=== PATIENT | male | born 1940 | race Caucasian/White ===

== ENCOUNTER 2019-01-06 06:56 | Day surgery (SDC) | payer MEDICARE, BC ==
[2019-01-06] VITALS (9 sets, daily range): BP systolic 92–144; BP diastolic 50–84
[~2019-01-06] VITALS: Ht 180.3 cm; Wt 135.9 kg
[~2019-01-06 06:56] MED LIST: BUPR150T8 PO; CHOL10002 PO; GABA-532 PO; GLYB6TAB3 PO; LISI-600 PO; METF500T PO; OMEP40CA37 PO
[2019-01-06] MEDS ORDERED: diphenhydrAMINE 25mg capsule PO PRN (07:35)
[2019-01-06] MEDS ORDERED: normal saline 1,000 ML IV SCH (07:35)
[2019-01-06] MEDS ORDERED: PIOG45TA5 PO (07:37)
[2019-01-06] MEDS ORDERED: LOVA10TA PO (07:37)
[2019-01-06] MEDS ORDERED: LANTUS SQ (07:37)
[2019-01-06 08:09] LABS: BASOPHILS # (AUTO) 0.1 X10'3 (0-0.2); EOSINOPHILS # (AUTO) 0.1 X10'3 (0-0.9); EOSINOPHILS % (AUTO) 2.4 % (0-6); HEMATOCRIT 47.1 % (42.0-52.0); HEMOGLOBIN 15.5 g/dl (14.0-17.9); LYMPHOCYTES # (AUTO) 1.5 X10'3 (1.1-4.8); LYMPHOCYTES % (AUTO) 28.1 % (21-51); MEAN CORPUSCULAR HEMOGLOBIN 31.9 PG (27.0-31.0); MEAN CORPUSCULAR VOLUME 96.7 FL (78-98); MEAN PLATELET VOLUME 7.1 FL (7.4-10.4); MONOCYTES # (AUTO) 0.5 X10'3 (0-0.9); MONOCYTES % (AUTO) 9.4 % (2-12); NEUTROPHILS # (AUTO) 3.1 X10'3 (1.8-7.7); NEUTROPHILS % (AUTO) 59.1 % (42-75); PLATELET COUNT 287 X10'3 (140-440); RED BLOOD COUNT 4.87 X10'6 (4.70-6.10); RED CELL DISTRIBUTION WIDTH 14.3 % (11.5-14.5); WHITE BLOOD COUNT 5.3 X10'3 (4.5-11.0)
[2019-01-06 08:16] LABS: ANION GAP 10 (8-16); BLOOD UREA NITROGEN 14 MG/DL (7-18); BUN/CREATININE RATIO 15.6 (5.4-32.0); CALCIUM 9.4 MG/DL (8.5-10.1); CHLORIDE 100 MMOL/L (99-107); GLUCOSE 173 MG/DL (70-104); MAGNESIUM 1.6 MG/DL (1.5-2.4); POTASSIUM 4.4 MMOL/L (3.5-5.1); SODIUM 139 MMOL/L (135-145); TOTAL CARBON DIOXIDE 28.6 MMOL/L (24-32); eGFR 82 ML/MIN
[2019-01-06 08:25] LABS: INR 1.1 INR; PROTHROMBIN TIME 10.8 SECONDS (9.0-12.0)
[2019-01-06] MEDS ORDERED: midazolam 2 mg/2 ml injection ONE ×5 (08:56→11:11)
[2019-01-06] MEDS ORDERED: lidocaine 1%/epinephrine 1:100,000 injection 50ml vial ONE (08:56)
[2019-01-06] MEDS ORDERED: ceFAZolin 1000mg inj ONE (08:56)
[2019-01-06] MEDS ORDERED: fentaNYL/PF 50MCG/1 ML 2ML syringe ONE ×4 (08:56→11:11)
[2019-01-06] MEDS ORDERED: cefazolin/dext.iso 2gm/100ml 100 ML IV ONE (08:56)
[2019-01-06] MEDS ORDERED: vancomycin 1,000mg inj ONE (09:15)
[2019-01-06] MEDS ORDERED: proCHLORperazine 10 MG/2 ml inj ONE (09:28)
[2019-01-06] MEDS ORDERED: iohexol 350MG/ML 100ml bottle IV ONE ×2 (09:29→09:56)
== END 2019-01-06 14:15 | disposition home or self-care (01) ==
LOC: SSTAY O 06:56
PROVIDERS: ATTEND Internal Medicine Cardiovascular Disease
DX: I44.2 Atrioventricular block, complete (principal); I42.8 Other cardiomyopathies; I10 Essential (primary) hypertension; E11.9 Type 2 diabetes mellitus without complications; I42.0 Dilated cardiomyopathy; K21.9 Gastro-esophageal reflux disease without esophagitis; C14.0 Malignant neoplasm of pharynx, unspecified; Z85.89 Personal history of malignant neoplasm of other organs and systems
CPT/HCPCS: 33225; 33233; 33235; 33249; 36415; 71046; 80048; 82948; 83735; 85025; 85610; 93005; 99152; 99153; C1777; C1882; C1887; C1900; J0690; J0780; J2250; J3010; J3370; J3490; J7030; Q0163; Q9967; 33216; 33224; 33231; A4565; A4620; C1769

== ENCOUNTER 2019-05-29 12:32 | Outpatient (CLI) | payer MEDICARE, BC ==
[~2019-05-29] VITALS: Ht 175.9 cm; Wt 133.4 kg
[~2019-05-29 12:32] MED LIST changes: +LANTUS SQ; +LOVA10TA PO; +OMEP40CA13 PO; -OMEP40CA37 PO; +PIOG45TA5 PO
[2019-05-29 13:06] LABS: TOTAL HEMOGLOBIN 15.9 G/dl (14.0-17.9)
[2019-05-29] MEDS ORDERED: albuterol 2.5 MG/3 ML nebule NEB PRN (13:35)
== END 2019-05-29 23:59 | disposition home or self-care (01) ==
LOC: RT 12:32
PROVIDERS: ATTEND Internal Medicine Pulmonary Disease
DX: J44.9 Chronic obstructive pulmonary disease, unspecified (principal); Z79.899 Other long term (current) drug therapy; Z87.891 Personal history of nicotine dependence
CPT/HCPCS: 85018; 94060; 94727; 94729; 94760

== ENCOUNTER 2020-07-17 15:36 | Inpatient (IN) | payer MEDICARE, BC ==
[~2020-07-17] VITALS: Ht 182.9 cm; Wt 147.7 kg
[2020-07-17] MEDS ORDERED: acetaminophen 325mg tablet PO STA (15:59)
[2020-07-17] MEDS ORDERED: CefTRIAXone 2gm/D5W 50ml BAG 50 ML IV ONE (16:00)
[2020-07-17] MEDS ORDERED: normal saline 1000ML IV soln IV ONE (16:00)
[2020-07-17 16:49] LABS: MEAN CORPUSCULAR HEMOGLOBIN 34.3 PG (27.0-31.0); PLATELET COUNT 144 X10'3 (140-440)
[2020-07-17 16:50] LABS: HEMOGLOBIN 10.1 g/dl (14.0-17.9); MEAN CORPUSCULAR HGB CONC 33.7 g/dL (33.0-36.5); MEAN CORPUSCULAR VOLUME 101.8 FL (78-98); RED BLOOD COUNT 2.94 X10'6 (4.70-6.10); RED CELL DISTRIBUTION WIDTH 18.9 % (11.5-14.5); WHITE BLOOD COUNT 16.8 X10'3 (4.5-11.0)
[2020-07-17 16:57] LABS: CLARITY,URINE CLEAR (Clear); COLOR,URINE YELLOW (Yellow); GLUCOSE, URINE 250 mg/dl (Neg); KETONES,URINE TRACE mg/dl (Neg); LEUKOCYTE ESTERASE ,URINE NEGATIVE (Neg); NITRITES, URINE NEGATIVE (Neg); OCCULT BLOOD,URINE TRACE-LYSED (Neg); PROTEIN,URINE TRACE mg/dl (Neg); UROBILINOGEN,URINE 0.2 E.U/dL (0.2-1.0)
[2020-07-17 17:01] LABS: ALANINE AMINOTRANSFERASE 16 U/L (12-78); ALBUMIN 3.2 G/DL (3.4-5.0); ALBUMIN/GLOBULIN RATIO 0.8 (1.1-1.5); ALKALINE PHOSPHATASE 64 IU/L (46-116); ANION GAP 6 (8-16); ASPARTATE AMINO TRANSFERASE 22 U/L (10-37); BILIRUBIN,TOTAL 0.6 MG/DL (0.1-1.0); BLOOD UREA NITROGEN 23 MG/DL (7-18); BUN/CREATININE RATIO 19.7 (5.4-32.0); CALCIUM 8.1 MG/DL (8.5-10.1); CHLORIDE 99 MMOL/L (99-107); CREATININE 1.17 MG/DL (0.60-1.10); GLUCOSE 258 MG/DL (70-104); SODIUM 133 MMOL/L (135-145); TOTAL CARBON DIOXIDE 27.8 MMOL/L (24-32); TOTAL PROTEIN 7.3 G/DL (6.4-8.2); eGFR 60 ML/MIN
[2020-07-17 17:02] LABS: UA COLLECTION TYPE STRAIGHT CATH
[2020-07-17 17:03] LABS: AMORPHOUS URATES 2+; BACTERIA,URINE NONE SEEN /HPF (Neg); MUCUS STRANDS FEW /LPF (Neg); RBC,URINE 0-2 /HPF (0-2); SQUAMOUS EPITHELIAL CELL,UR NONE SEEN /LPF (FEW); WBC,URINE NONE SEEN /HPF (0-4)
[2020-07-17 17:16] LABS: TOTAL CELLS COUNTED 100
[2020-07-17 17:17] LABS: ANISOCYTOSIS 2+; PLATELET ESTIMATE DECREASED
--- NOTE | 2020-07-17 17:20 | NUR ---
PULLED IV OUT, REMOVED BP CUFF AND O2
--- NOTE | 2020-07-17 17:23 | NUR ---
KG - [phone] AMY- SON [phone]
[2020-07-17] MEDS ORDERED: iohexol 350MG/ML 100ml bottle IV ONE (17:43)
[2020-07-17 18:17] LABS: TROPONIN I < 0.04 NG/ML (0.0-0.05)
[2020-07-17 18:36] LABS: URINE AMPHETAMINE SCREEN NEGATIVE (Neg); URINE BARBITUATE SCREEN NEGATIVE (Neg); URINE BENZODIAZEPINES SCREEN NEGATIVE (Neg); URINE CANNABINOID SCREEN NEGATIVE (Neg); URINE COCAINE SCREEN NEGATIVE (Neg); URINE METHADONE SCREEN NEGATIVE (Neg); URINE OPIATE SCREEN NEGATIVE (Neg); URINE PHENCYCLIDINE SCREEN NEGATIVE (Neg)
[2020-07-17] MEDS ORDERED: MESSAGE TO NURSING PO ONE (18:50)
--- NOTE | 2020-07-17 19:26 | NUR ---
CALL FROM SON, AMY WHIPPLE [phone]. UPDATED SON
[2020-07-17] MEDS ORDERED: potassium Cl 20 mEq SR tablet PO PRN ×2 (19:45)
[2020-07-17] MEDS ORDERED: acetaminophen 325mg tablet PO PRN (19:45)
[2020-07-17] MEDS ORDERED: ipratropium/albuterol 3ml nebule NEB PRN (19:45)
[2020-07-17] MEDS ORDERED: docusate sod 100mg capsule PO PRN (19:45)
[2020-07-17] MEDS ORDERED: insulin Lispro (HumaLOG) vial - multi-dose SQ SCH (19:45)
[2020-07-17] MEDS ORDERED: glucagon, human recombinant 1mg kit SUBCUT PRN (19:45)
[2020-07-17] MEDS ORDERED: magnesium 2GM in 50ml NS 50 ML IV PRN (19:45)
[2020-07-17] MEDS ORDERED: potassium CL 10mEq/100ml bag 100 ML IV PRN ×2 (19:45)
[2020-07-17] MEDS ORDERED: dextrose 5%-1/2 normal saline 1,000 ML IV SCH (19:45)
[2020-07-17] MEDS ORDERED: ondansetron/PF 4mg/2ml inj IV PRN (19:45)
[2020-07-17] MEDS ORDERED: MESSAGE TO PHARMACY PO ONE (19:45)
[2020-07-17] MEDS ORDERED: acetaminophen 650mg rectal suppository RC PRN (19:45)
[2020-07-17] MEDS ORDERED: magnesium 4gm in 100ml NS 100 ML IV PRN (19:45)
[2020-07-17] MEDS ORDERED: dextrose 50%-water 50ml dispensing syringe IV PRN ×2 (19:45)
[2020-07-17] MEDS ORDERED: mag hydrox/Alum hydrox/simeth 30ml oral suspension PO PRN (19:45)
[2020-07-17] MEDS ORDERED: dextrose ORAL solution 15 GM/59 ML bottle PO PRN ×2 (19:45)
[2020-07-17] MEDS ORDERED: enoxaparin 40mg/0.4ml syringe SQ SCH (20:00)
[2020-07-17] MEDS ORDERED: vancomycin/NS 1 GM ADD-VANTAGE 250 ML IV SCH (20:00)
[2020-07-17] MEDS: K and/or MAG REPLACEMENT MC SCH (20:00)
[2020-07-17] MEDS ORDERED: GLYB5TAB7 PO (20:01)
[2020-07-17] MEDS ORDERED: METF-517 PO (20:07)
[2020-07-17] MEDS ORDERED: LOSA50TA64 PO (20:07)
[2020-07-17] MEDS ORDERED: IPRA3AMP31 NEB (20:07)
[2020-07-17 20:16] LABS: ABG BASE EXCESS 0.8 mmol/L (-2.0-2.0); ABG HCO3 25.4 mmol/L (22.0-26.0); ABG OXYGEN SATURATION 95.8 % (94-97); ABG PCO2 (T) 44.8 mmHg (35.0-48.0); ABG PO2 (T) 94.2 mmHg (75.0-100.0); ALLEN'S TEST POSITIVE; FCOHb 0.3 % (0.0-3.9); FLOW 3 L/min; FMetHb 0.1 % (0.0-1.5); FO2Hb 95.4 % (94-97); PATIENT TEMPERATURE 39.5; TOTAL HEMOGLOBIN 10.2 G/dl (14.0-18.0)
[2020-07-17] MEDS: ampicillin inj 2 GM in normal saline 100ml IV soln 100 ML IV SCH (20:36)
[2020-07-17] MEDS ORDERED: insulin glargine (Lantus) pen - multi-dose SQ SCH ×2 (21:00→22:00)
[2020-07-17 21:25] VITALS: BP 153/45
[2020-07-17] MEDS ORDERED: gabapentin 300mg capsule PO PRN (21:25)
[2020-07-17] MEDS: normal saline 1000ml 1,000 ML IV SCH (23:19)
[2020-07-17] MEDS: acyclovir inj 1,000 MG in normal saline 250ml IV soln 230 ML IV SCH (23:19)
[2020-07-18] MEDS: ampicillin inj 2 GM in normal saline 100ml IV soln 100 ML IV SCH ×3 (02:43→14:00)
[2020-07-18] MEDS ORDERED: vancomycin/NS 1 GM ADD-VANTAGE 250 ML IV SCH (05:26)
[2020-07-18 06:00] VITALS: BP 152/68
--- NOTE | 2020-07-18 06:28 | NUR ---
Report given to Regina ALVAREZ.
[2020-07-18 06:30] LABS: HEMATOCRIT 27.2 % (42.0-52.0); HEMOGLOBIN 9.1 g/dl (14.0-17.9); MEAN CORPUSCULAR HEMOGLOBIN 33.9 PG (27.0-31.0); MEAN CORPUSCULAR HGB CONC 33.4 g/dL (33.0-36.5); MEAN CORPUSCULAR VOLUME 101.6 FL (78-98); MEAN PLATELET VOLUME 7.8 FL (7.4-10.4); PLATELET COUNT 111 X10'3 (140-440); RED BLOOD COUNT 2.68 X10'6 (4.70-6.10); RED CELL DISTRIBUTION WIDTH 19.3 % (11.5-14.5); WHITE BLOOD COUNT 16.5 X10'3 (4.5-11.0)
[2020-07-18 06:52] LABS: ALANINE AMINOTRANSFERASE 14 U/L (12-78); ALBUMIN 2.8 G/DL (3.4-5.0); ALBUMIN/GLOBULIN RATIO 0.7 (1.1-1.5); ALKALINE PHOSPHATASE 56 IU/L (46-116); ANION GAP 7 (8-16); ASPARTATE AMINO TRANSFERASE 20 U/L (10-37); BILIRUBIN,TOTAL 0.4 MG/DL (0.1-1.0); BLOOD UREA NITROGEN 15 MG/DL (7-18); BUN/CREATININE RATIO 15.6 (5.4-32.0); CALCIUM 7.7 MG/DL (8.5-10.1); CHLORIDE 105 MMOL/L (99-107); CREATININE 0.96 MG/DL (0.60-1.10); GLUCOSE 128 MG/DL (70-104); MAGNESIUM 1.9 MG/DL (1.5-2.4); POTASSIUM 3.9 MMOL/L (3.5-5.1); SODIUM 139 MMOL/L (135-145); TOTAL CARBON DIOXIDE 27.1 MMOL/L (24-32); TOTAL PROTEIN 6.6 G/DL (6.4-8.2); eGFR 76 ML/MIN
--- NOTE | 2020-07-18 06:59 | NUR ---
Patient in room ORTHO 4009B. I have received report from KIM Tanner and had the opportunity to ask questions and assume patient care.
[2020-07-18] MEDS: K and/or MAG REPLACEMENT MC SCH (07:34)
[2020-07-18] MEDS ORDERED: buPROPion SR 150mg tablet PO SCH (08:00)
[2020-07-18] MEDS ORDERED: vitamin D (cholecalciferol) 1,000 unit tablet PO SCH (08:00)
[2020-07-18] MEDS ORDERED: atorvastatin 10mg tablet PO SCH (08:00)
[2020-07-18] MEDS: acyclovir inj 1,000 MG in normal saline 250ml IV soln 230 ML IV SCH (08:35)
[2020-07-18 09:15] LABS: IMMATURE CELLS 27 % (0-0)
[2020-07-18 09:27] LABS: TOTAL CELLS COUNTED 100
[2020-07-18 09:30] LABS: ANISOCYTOSIS 2+; PLATELET ESTIMATE DECREASED
[2020-07-18] MEDS: normal saline 1000ml 1,000 ML IV SCH (10:07)
--- NOTE | 2020-07-18 11:49 | NUR ---
DM Consult: Pt admit DX sepsis, metabolic encephalopathy, COPD, and possibly both TIA as well as OR per MD note. Hx T2DM A1C 8.4 appropriate given geriatric age. Pt now AOx4 w/ mentation normal per MD note. Advanced to carb controlled/heart healthy diet PO 100% first meal pending [employer] BSS. Double proteins BIDLD added given DX and pt size; pending scaled wt this hx but compared to prior admits wt likely somewhat accurate. Will continue to monitor for additional protein needs given DX. Rec: 1. continue carb controlled/heart healthy diet 2. double meats BIDLD 3. routine bowel care 4. scaled wt this admit Addendum: 07/18/20 at [address] Amended: Links added.
--- NOTE | 2020-07-18 14:07 | NUR ---
DC INSTRUCTIONS GIVEN, QUESTIONS ANSWERED. IV REMOVED, CANULA INTACT, NO COMPLICATIONS. TELE MONITOR WAS REMOVED. PT WAS ASSISTED IN DRESSING, PERSONAL ITEMS GATHERED. PT WAS WHEELED DOWN TO PRIVATE VEHICLE IN STABLE CONDITION.
[2020-07-18] MEDS ORDERED: CefTRIAXone 2gm/D5W 50ml BAG 50 ML IV SCH (16:00)
[2020-07-19] MEDS ORDERED: VANCOMYCIN LEVEL IV ONE (08:30)
== END 2020-07-18 13:30 | disposition home or self-care (01) | DRG 871 ==
LOC: ER 15:37 → ED HOLD 19:45 → ORTHO 4S 21:20
PROVIDERS: ADMIT Family Medicine; ATTEND Internal Medicine
PROC: B32T1ZZ Computerized Tomography (CT Scan) of Left Pulmonary Artery using Low Osmolar Contrast (ICD-10-PCS; principal; 2020-07-17)
PROC: B3201ZZ Computerized Tomography (CT Scan) of Thoracic Aorta using Low Osmolar Contrast (ICD-10-PCS; 2020-07-17)
PROC: B32S1ZZ Computerized Tomography (CT Scan) of Right Pulmonary Artery using Low Osmolar Contrast (ICD-10-PCS; 2020-07-17)
DX: A41.9 Sepsis, unspecified organism (principal); G93.41 Metabolic encephalopathy; Z68.41 Body mass index [BMI] 40.0-44.9, adult; J90 Pleural effusion, not elsewhere classified; E11.9 Type 2 diabetes mellitus without complications; I10 Essential (primary) hypertension; J44.9 Chronic obstructive pulmonary disease, unspecified; K57.30 Diverticulosis of large intestine without perforation or abscess without bleeding; N40.0 Benign prostatic hyperplasia without lower urinary tract symptoms; E66.01 Morbid (severe) obesity due to excess calories; I25.10 Atherosclerotic heart disease of native coronary artery without angina pectoris; N28.9 Disorder of kidney and ureter, unspecified; G89.29 Other chronic pain; I49.5 Sick sinus syndrome; Z66 Do not resuscitate; Z79.4 Long term (current) use of insulin; Z79.899 Other long term (current) drug therapy; Z85.819 Personal history of malignant neoplasm of unspecified site of lip, oral cavity, and pharynx; Z87.891 Personal history of nicotine dependence; Z95.0 Presence of cardiac pacemaker
CPT/HCPCS: 36415; 36600; 70450; 71045; 71275; 74177; 80053; 80305; 81001; 82803; 82948; 83036; 83605; 83735; 84145; 84443; 84484; 85007; 85018; 85025; 85610; 87040; 87081; 87635; 93005; 93306; 93308; 94760; 99285; G0378; J0133; J0290; J0696; J1650; J1815; J3370; J7030; J7050; Q9967

== ENCOUNTER 2021-11-03 16:28 | Inpatient (IN) | payer MEDICARE, BC ==
[~2021-11-03] VITALS: Ht 180.3 cm; Wt 84.1 kg
[~2021-11-03 16:28] MED LIST changes: +GLYB5TAB7 PO; -GLYB6TAB3 PO; +IPRA3AMP31 NEB; -LISI-600 PO; +LOSA50TA64 PO; +METF-517 PO; -METF500T PO; -OMEP40CA13 PO; +OMEP40CA21 PO
[2021-11-03] MEDS ORDERED: normal saline 1000ML IV soln IVB ONE (16:55)
[2021-11-03 17:31] LABS: BASOPHILS % (AUTO) 0.7 % (0-1); EOSINOPHILS % (AUTO) 0.3 % (0-6); HEMATOCRIT 30.8 % (42.0-52.0); HEMOGLOBIN 10.6 g/dl (14.0-17.9); LYMPHOCYTES # (AUTO) 0.4 X10'3 (1.1-4.8); LYMPHOCYTES % (AUTO) 15.4 % (21-51); MEAN CORPUSCULAR HEMOGLOBIN 36.1 PG (27.0-31.0); MEAN CORPUSCULAR HGB CONC 34.5 g/dL (33.0-36.5); MEAN CORPUSCULAR VOLUME 104.4 FL (78-98); MEAN PLATELET VOLUME 7.3 FL (7.4-10.4); MONOCYTES # (AUTO) 0.1 X10'3 (0-0.9); MONOCYTES % (AUTO) 3.9 % (2-12); NEUTROPHILS # (AUTO) 2.1 X10'3 (1.8-7.7); NEUTROPHILS % (AUTO) 79.7 % (42-75); PLATELET COUNT 135 X10'3 (140-440); RED BLOOD COUNT 2.95 X10'6 (4.70-6.10); RED CELL DISTRIBUTION WIDTH 19.2 % (11.5-14.5); WHITE BLOOD COUNT 2.6 X10'3 (4.5-11.0)
[2021-11-03 17:54] LABS: ALANINE AMINOTRANSFERASE 39 U/L (12-78); ALBUMIN 2.7 G/DL (3.4-5.0); ALBUMIN/GLOBULIN RATIO 0.6 (1.1-1.5); ALKALINE PHOSPHATASE 110 IU/L (46-116); ANION GAP 8 (8-16); ASPARTATE AMINO TRANSFERASE 27 U/L (10-37); BILIRUBIN,TOTAL 0.8 MG/DL (0.1-1.0); BLOOD UREA NITROGEN 17 MG/DL (7-18); BUN/CREATININE RATIO 18.9 (5.4-32.0); CALCIUM 8.5 MG/DL (8.5-10.1); CHLORIDE 96 MMOL/L (99-107); GLUCOSE 327 MG/DL (70-104); POTASSIUM 3.6 MMOL/L (3.5-5.1); SODIUM 138 MMOL/L (135-145); TOTAL PROTEIN 6.9 G/DL (6.4-8.2); eGFR 81 ML/MIN
[2021-11-03 18:04] LABS: TOTAL CELLS COUNTED 100
[2021-11-03 18:05] LABS: ANISOCYTOSIS 2+; ELLIPTOCYTES FEW; PLATELET ESTIMATE DECREASED
[2021-11-03] MEDS ORDERED: temazepam 15mg capsule PO PRN (21:00)
[2021-11-03 21:24] LABS: CLARITY,URINE CLEAR (Clear); COLOR,URINE YELLOW (Yellow); GLUCOSE, URINE 500 mg/dl (Neg); KETONES,URINE 15 mg/dl (Neg); LEUKOCYTE ESTERASE ,URINE NEGATIVE (Neg); NITRITES, URINE NEGATIVE (Neg); OCCULT BLOOD,URINE NEGATIVE (Neg); PROTEIN,URINE 30 mg/dl (Neg)
[2021-11-03 21:26] LABS: UA COLLECTION TYPE CLN CATCH MIDSTREAM
[2021-11-03 21:35] LABS: MUCUS STRANDS MODERATE /LPF (Neg); SQUAMOUS EPITHELIAL CELL,UR FEW /LPF (FEW)
[2021-11-03 21:36] LABS: BACTERIA,URINE NONE SEEN /HPF (Neg); RBC,URINE 0-2 /HPF (0-2); WBC,URINE 0-4 /HPF (0-4)
[2021-11-03] MEDS ORDERED: MESSAGE TO PHARMACY PO ONE (22:05)
[2021-11-03] MEDS ORDERED: glucagon, human recombinant 1mg kit SUBCUT PRN (22:05)
[2021-11-03] MEDS ORDERED: dextrose ORAL solution 15 GM/59 ML bottle PO PRN ×2 (22:05)
[2021-11-03] MEDS ORDERED: dextrose 50%-water 50ml dispensing syringe IV PRN ×2 (22:05)
[2021-11-03 22:25] LABS: HEMOGLOBIN A1C 7.7 % (4.5-6.2)
[2021-11-03] MEDS ORDERED: acetaminophen 325mg tablet PO PRN ×2 (22:25)
[2021-11-03] MEDS ORDERED: acetaminophen 650mg rectal suppository RC PRN (22:25)
[2021-11-03] MEDS ORDERED: magnesium hydroxide 30ml (MOM) UD suspension PO PRN (22:25)
[2021-11-03] MEDS ORDERED: ondansetron 4mg rapidly disintigrating tab PO PRN (22:25)
[2021-11-03] MEDS ORDERED: bisacodyl 10mg suppository rectal RC PRN (22:25)
[2021-11-03] MEDS ORDERED: diphenhydrAMINE 25mg capsule PO PRN (22:25)
[2021-11-03] MEDS ORDERED: morphine 2 MG/ML inj. syringe IV PRN (22:25)
[2021-11-03] MEDS ORDERED: diphenhydrAMINE 50 mg/ml inj IV PRN (22:25)
[2021-11-03] MEDS ORDERED: ondansetron/PF 4mg/2ml inj IV PRN (22:25)
[2021-11-03] MEDS ORDERED: mag hydrox/Alum hydrox/simeth 30ml oral suspension PO PRN (22:25)
[2021-11-03] MEDS: normal saline 1000ml 1,000 ML IV SCH (22:34)
[2021-11-03] MEDS: insulin Lispro (HumaLOG) vial - multi-dose SQ SCH (22:48)
[2021-11-03 22:51] LABS: MAGNESIUM 1.8 MG/DL (1.5-2.4)
[2021-11-03 23:05] LABS: APTT 27 SECONDS (22-32)
[2021-11-03] MEDS: insulin glargine (Lantus) pen - multi-dose SQ SCH (23:57)
[2021-11-04] VITALS (7 sets, daily range): BP systolic 115–154; BP diastolic 58–75
[2021-11-04] MEDS: HYDROcodone/acetaminophen 5mg/325mg tablet PO PRN ×3 (00:09→17:09)
[2021-11-04] MEDS ORDERED: POSA100T PO (05:54)
[2021-11-04] MEDS ORDERED: METF-900 PO ×2 (05:54→07:00)
[2021-11-04] MEDS ORDERED: CARV3.1244 PO (05:54)
[2021-11-04] MEDS ORDERED: GABA300T25 PO (05:54)
[2021-11-04] MEDS ORDERED: BUPR-317 PO ×2 (05:54→16:00)
[2021-11-04] MEDS ORDERED: FLO0.4C PO ×3 (05:54→07:07)
[2021-11-04] MEDS ORDERED: OMEP20CA16 PO (05:54)
[2021-11-04] MEDS ORDERED: ROSU5TAB12 PO (05:54)
[2021-11-04] MEDS ORDERED: ACYC-126 PO (05:54)
--- NOTE | 2021-11-04 06:53 | NUR ---
Patient in room ORTHO 4010. I have received report from KIM BEDOLLA, and had the opportunity to ask questions and assume patient care.
[2021-11-04 07:24] LABS: BASOPHILS % (AUTO) 0.3 % (0-1); EOSINOPHILS % (AUTO) 0.6 % (0-6); HEMATOCRIT 28.5 % (42.0-52.0); HEMOGLOBIN 9.8 g/dl (14.0-17.9); LYMPHOCYTES # (AUTO) 0.4 X10'3 (1.1-4.8); LYMPHOCYTES % (AUTO) 19.5 % (21-51); MEAN CORPUSCULAR HEMOGLOBIN 36.2 PG (27.0-31.0); MEAN CORPUSCULAR HGB CONC 34.5 g/dL (33.0-36.5); MEAN CORPUSCULAR VOLUME 104.8 FL (78-98); MEAN PLATELET VOLUME 7.2 FL (7.4-10.4); MONOCYTES # (AUTO) 0.2 X10'3 (0-0.9); MONOCYTES % (AUTO) 7.1 % (2-12); NEUTROPHILS # (AUTO) 1.6 X10'3 (1.8-7.7); NEUTROPHILS % (AUTO) 72.5 % (42-75); PLATELET COUNT 115 X10'3 (140-440); RED BLOOD COUNT 2.72 X10'6 (4.70-6.10); WHITE BLOOD COUNT 2.3 X10'3 (4.5-11.0)
[2021-11-04 07:31] LABS: D-DIMER 1.31 MG/L FEU (0-0.50)
[2021-11-04 07:45] LABS: CREATINE KINASE 38 U/L (39-308); LIPASE < 50 U/L (73-393)
[2021-11-04] MEDS: docusate sod 100mg capsule PO SCH ×2 (08:00→20:24)
[2021-11-04] MEDS: pantoprazole 40mg Tablet.DR PO SCH (08:00)
[2021-11-04 08:01] LABS: ALANINE AMINOTRANSFERASE 31 U/L (12-78); ALBUMIN 2.5 G/DL (3.4-5.0); ALBUMIN/GLOBULIN RATIO 0.8 (1.1-1.5); ALKALINE PHOSPHATASE 98 IU/L (46-116); ANION GAP 8 (8-16); ASPARTATE AMINO TRANSFERASE 17 U/L (10-37); BILIRUBIN,TOTAL 0.7 MG/DL (0.1-1.0); BLOOD UREA NITROGEN 15 MG/DL (7-18); BUN/CREATININE RATIO 19.2 (5.4-32.0); CHLORIDE 99 MMOL/L (99-107); CHOL/HDL RATIO 3.7 (0.00-4.99); CHOLESTEROL 138 MG/DL (0-200); CREATININE 0.78 MG/DL (0.60-1.10); GLUCOSE 267 MG/DL (70-104); HDL CHOLESTEROL 37 MG/DL (35-60); POTASSIUM 3.5 MMOL/L (3.5-5.1); SODIUM 141 MMOL/L (135-145); TOTAL CARBON DIOXIDE 33.9 MMOL/L (24-32); TOTAL PROTEIN 5.7 G/DL (6.4-8.2); TRIGLYCERIDES 128 MG/DL (20-135); eGFR > 90 ML/MIN
[2021-11-04] MEDS: heparin, porcine 5000 units/ml vial SQ SCH ×2 (08:01→20:25)
[2021-11-04 08:20] LABS: LDL CHOLESTEROL 74 MG/DL (50-100)
[2021-11-04 08:25] LABS: TOTAL CELLS COUNTED 100
[2021-11-04 08:26] LABS: ANISOCYTOSIS 2+; PLATELET ESTIMATE DECREASED; TOXIC GRANULATION 1+
[2021-11-04 08:27] LABS: POLYCHROMASIA FEW
[2021-11-04] MEDS: insulin Lispro (HumaLOG) vial - multi-dose SQ SCH ×3 (08:53→19:07)
--- NOTE | 2021-11-04 14:39 | NUR ---
DM/Malnutrition Consults: Pt admit DX ALOC, [place], and recent COVID-19 per EMR. Pt hx T2DM A1C 7.7% on metformin, actos, and Lantus at home per EMR. Pt AOx2/confused per EMR not appropriate for DM ed at this time and A1C is appropriate given geriatric age per ADA guidelines. Pt has no significant weakness noted, no edema/wounds, appears WD/WN per MD note, and current scaled wt appropriate for age w/ no prior wt hx in EMR. 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 Likely decrease in PO trends given DX though pt currently lacks minimum malnutrition criteria. Will monitor for nutrition intervention needs this admit. Addendum: 11/04/21 at [address] Amended: Links added.
[2021-11-04] MEDS ORDERED: ALBU18HF2 PO (16:00)
[2021-11-04] MEDS ORDERED: ACYC400T39 PO (16:03)
[2021-11-04] MEDS ORDERED: gabapentin 300mg capsule PO PRN (16:45)
[2021-11-04] MEDS ORDERED: ALBUTEROL INHALER 1 PUFF/90 MCG INHALER IH PRN (16:45)
[2021-11-04] MEDS: carVEDilol 3.125mg tablet PO SCH (20:24)
[2021-11-04] MEDS: dexamethasone 4mg tablet PO SCH (20:24)
[2021-11-04] MEDS: acyclovir 200 MG capsule PO SCH (20:25)
[2021-11-04] MEDS: tamsulosin 0.4mg capsule PO SCH (20:27)
[2021-11-04] MEDS: insulin glargine (Lantus) pen - multi-dose SQ SCH (21:16)
[2021-11-05 06:00] VITALS: BP 151/73
--- NOTE | 2021-11-05 06:59 | NUR ---
Problems reprioritized. Patient report given, questions answered & plan of care reviewed with LUIS.
[2021-11-05 08:00] LABS: BASOPHILS % (AUTO) 0.1 % (0-1); EOSINOPHILS % (AUTO) 0 % (0-6); HEMATOCRIT 28.8 % (42.0-52.0); LYMPHOCYTES # (AUTO) 0.4 X10'3 (1.1-4.8); LYMPHOCYTES % (AUTO) 16.3 % (21-51); MEAN CORPUSCULAR HEMOGLOBIN 36.1 PG (27.0-31.0); MEAN CORPUSCULAR HGB CONC 34.7 g/dL (33.0-36.5); MEAN CORPUSCULAR VOLUME 104.1 FL (78-98); MONOCYTES # (AUTO) 0.1 X10'3 (0-0.9); MONOCYTES % (AUTO) 4.5 % (2-12); NEUTROPHILS # (AUTO) 1.7 X10'3 (1.8-7.7); NEUTROPHILS % (AUTO) 79.1 % (42-75); PLATELET COUNT 122 X10'3 (140-440); RED BLOOD COUNT 2.76 X10'6 (4.70-6.10); RED CELL DISTRIBUTION WIDTH 18.5 % (11.5-14.5); WHITE BLOOD COUNT 2.2 X10'3 (4.5-11.0)
[2021-11-05] MEDS: atorvastatin 20mg tablet PO SCH ×2 (08:00→08:12)
[2021-11-05] MEDS: docusate sod 100mg capsule PO SCH ×2 (08:00→08:10)
[2021-11-05] MEDS: pantoprazole 40mg Tablet.DR PO SCH ×2 (08:00→08:10)
[2021-11-05] MEDS ORDERED: insulin glargine (Lantus) pen - multi-dose SQ SCH (08:00)
[2021-11-05] MEDS: pioglitazone 45mg tablet PO SCH (08:10)
[2021-11-05] MEDS: carVEDilol 3.125mg tablet PO SCH ×2 (08:10→20:33)
[2021-11-05] MEDS: losartan 50mg tablet PO SCH (08:11)
[2021-11-05] MEDS: cholecalciferol (vitamin D3) 1,000 unit (25mcg) tablet PO SCH (08:12)
[2021-11-05] MEDS: dexamethasone 4mg tablet PO SCH ×2 (08:12→20:33)
[2021-11-05] MEDS: acyclovir 200 MG capsule PO SCH ×2 (08:13→20:33)
[2021-11-05] MEDS: buPROPion SR 150mg tablet PO SCH (08:13)
[2021-11-05] MEDS: heparin, porcine 5000 units/ml vial SQ SCH ×2 (08:13→20:35)
[2021-11-05 08:39] LABS: TOTAL CELLS COUNTED 100
[2021-11-05 08:40] LABS: ANISOCYTOSIS 2+; PLATELET ESTIMATE DECREASED; POLYCHROMASIA FEW; TEAR DROP CELLS FEW
[2021-11-05 09:04] LABS: ALANINE AMINOTRANSFERASE 33 U/L (12-78); ALBUMIN 2.4 G/DL (3.4-5.0); ALBUMIN/GLOBULIN RATIO 0.7 (1.1-1.5); ALKALINE PHOSPHATASE 109 IU/L (46-116); ANION GAP 9 (8-16); ASPARTATE AMINO TRANSFERASE 21 U/L (10-37); BILIRUBIN,TOTAL 0.8 MG/DL (0.1-1.0); BLOOD UREA NITROGEN 15 MG/DL (7-18); BUN/CREATININE RATIO 19.2 (5.4-32.0); CHLORIDE 97 MMOL/L (99-107); CREATININE 0.78 MG/DL (0.60-1.10); GLUCOSE 293 MG/DL (70-104); POTASSIUM 3.9 MMOL/L (3.5-5.1); SODIUM 137 MMOL/L (135-145); TOTAL PROTEIN 5.7 G/DL (6.4-8.2); eGFR > 90 ML/MIN
[2021-11-05] MEDS: insulin Lispro (HumaLOG) vial - multi-dose SQ SCH ×3 (09:29→20:22)
[2021-11-05 10:00] VITALS: BP 126/59
[2021-11-05] MEDS: benzonatate 100mg capsule PO PRN (12:07)
[2021-11-05 14:00] VITALS: BP 115/54
[2021-11-05 18:00] VITALS: BP 113/50
[2021-11-05] MEDS: tamsulosin 0.4mg capsule PO SCH (20:33)
[2021-11-05] MEDS: insulin glargine (Lantus) pen - multi-dose SQ SCH ×2 (21:00→21:56)
[2021-11-05 22:00] VITALS: BP 143/57
[2021-11-05] MEDS: normal saline 1000ml 1,000 ML IV SCH (22:25)
--- NOTE | 2021-11-05 22:26 | NUR ---
Pt was to recieved 2100 pm Lantus insulin by charge Nurse 60 units but patient stated that he takes 40 units. Attempted to reach son to verify but no response. Call placed to Dr. Shannon and verbal order was given to hold night insulin at this time but continue with humolog coverage for blood sugars. pt's blood sugar at 2100 was 184mg/dl. Pt resting comfortably with side rails up x2.
[2021-11-06 02:00] VITALS: BP 147/65
[2021-11-06 06:00] VITALS: BP 135/70
--- NOTE | 2021-11-06 06:43 | NUR ---
Patient very aggitated. States he is going to leave no matter what today. He does not want to be held prisoner. 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 Patient was oriented to the fact that he has covid and he lives at home at home alone. Patient has been wearing oxgyen here, patient states he has oxygen at home however it is his 's oxygen. I asked patient if he was to leave how will he be getting home? Patient states his son will come and pick him up. Patient is alert and oriented. Patient agreed to give me until 0700 to contact the doctor but patient is adamant he is going to leave today unless we bring his here from [facility]. I advised patient we don't do that because our hospital is an acute hospital. I also advised he would not be able to go and visit his at [facility] because he is sick with COVID. Patient is currently on the phone speaking with his son.
--- NOTE | 2021-11-06 06:47 | NUR ---
Patient currently refusing to keep his oxygen on.
[2021-11-06] MEDS: benzonatate 100mg capsule PO PRN (07:10)
[2021-11-06] MEDS: cholecalciferol (vitamin D3) 1,000 unit (25mcg) tablet PO SCH (07:10)
[2021-11-06] MEDS: pioglitazone 45mg tablet PO SCH (07:10)
[2021-11-06] MEDS: buPROPion SR 150mg tablet PO SCH (07:10)
[2021-11-06] MEDS: losartan 50mg tablet PO SCH (07:11)
[2021-11-06] MEDS: dexamethasone 4mg tablet PO SCH (07:11)
[2021-11-06] MEDS: acyclovir 200 MG capsule PO SCH (07:11)
[2021-11-06] MEDS: pantoprazole 40mg Tablet.DR PO SCH ×2 (07:12→08:00)
[2021-11-06] MEDS: heparin, porcine 5000 units/ml vial SQ SCH (07:13)
[2021-11-06] MEDS: carVEDilol 3.125mg tablet PO SCH (07:14)
--- NOTE | 2021-11-06 07:25 | NUR ---
PAGER ID: [phone] MESSAGE: Tuyet Velasco [phone] Re: Brig[facility] [id number] patient wants to be discharged states he will be leaving no matter what please call.
--- NOTE | 2021-11-06 07:40 | NUR ---
Spoke to patients lily Coronel
[2021-11-06] MEDS: docusate sod 100mg capsule PO SCH (08:00)
[2021-11-06 08:30] LABS: BASOPHILS % (AUTO) 0 % (0-1); EOSINOPHILS % (AUTO) 0.1 % (0-6); HEMATOCRIT 30.5 % (42.0-52.0); HEMOGLOBIN 10.6 g/dl (14.0-17.9); LYMPHOCYTES # (AUTO) 0.5 X10'3 (1.1-4.8); LYMPHOCYTES % (AUTO) 16.6 % (21-51); MEAN CORPUSCULAR HEMOGLOBIN 36.4 PG (27.0-31.0); MEAN CORPUSCULAR HGB CONC 34.7 g/dL (33.0-36.5); MEAN PLATELET VOLUME 8.2 FL (7.4-10.4); MONOCYTES # (AUTO) 0.2 X10'3 (0-0.9); MONOCYTES % (AUTO) 6.2 % (2-12); NEUTROPHILS # (AUTO) 2.4 X10'3 (1.8-7.7); NEUTROPHILS % (AUTO) 77.1 % (42-75); PLATELET COUNT 161 X10'3 (140-440); RED CELL DISTRIBUTION WIDTH 19.4 % (11.5-14.5); WHITE BLOOD COUNT 3.1 X10'3 (4.5-11.0)
[2021-11-06 08:36] LABS: ALANINE AMINOTRANSFERASE 35 U/L (12-78); ALBUMIN 2.7 G/DL (3.4-5.0); ALBUMIN/GLOBULIN RATIO 0.7 (1.1-1.5); ALKALINE PHOSPHATASE 117 IU/L (46-116); ANION GAP 10 (8-16); ASPARTATE AMINO TRANSFERASE 20 U/L (10-37); BILIRUBIN,TOTAL 0.7 MG/DL (0.1-1.0); BLOOD UREA NITROGEN 27 MG/DL (7-18); BUN/CREATININE RATIO 28.4 (5.4-32.0); CALCIUM 8.6 MG/DL (8.5-10.1); CHLORIDE 100 MMOL/L (99-107); CREATININE 0.95 MG/DL (0.60-1.10); GLUCOSE 299 MG/DL (70-104); SODIUM 141 MMOL/L (135-145); TOTAL CARBON DIOXIDE 30.9 MMOL/L (24-32); TOTAL PROTEIN 6.5 G/DL (6.4-8.2); eGFR 76 ML/MIN
--- NOTE | 2021-11-06 08:46 | NUR ---
PAGER ID: [phone] MESSAGE: Dr. Adrian Fofana wants to leave, wants to know if you can discharge him. Sally [phone] (89 character message out of a maximum of [phone])
[2021-11-06] MEDS: insulin Lispro (HumaLOG) vial - multi-dose SQ SCH (09:28)
[2021-11-06 10:00] VITALS: BP 118/52
--- NOTE | 2021-11-06 10:22 | NUR ---
O2 Sat at rest on room air:90% If below 89%: Recovery O2 Sat at rest on ___LPM:___%:___% via (mask/nasal cannula, etc..) No further documentation is necessary. Patient ambulated 300' via FWW O2 sats were 100% after patient back in bed and coughing a few times O@ sats dropped to93% If O2 Sat did not drop below 89% on room air,ambulate patient on room air. O2 Sat while ambulating on room air:___% Recovery O2 Sat while ambulating on ___LPM:___% No further documentation is necessary. If patient does not drop below 89% while ambulating, he/she does not qualify for home O2.
--- NOTE | 2021-11-06 10:28 | NUR ---
PAGER ID: [phone] MESSAGE: Sheridan [phone] Brigido. Patients O2 sats 90% RA at rest ambulated 300' O2 never dropped below 93% was even 100% at times
[2021-11-06] MEDS ORDERED: DEC4T PO (10:31)
[2021-11-06] MEDS ORDERED: ASPI81TA52 PO (10:31)
[2021-11-06 13:14] LABS: TOTAL CELLS COUNTED 100
[2021-11-06 13:16] LABS: ANISOCYTOSIS 2+; ELLIPTOCYTES FEW; PLATELET ESTIMATE NORMAL; POLYCHROMASIA FEW; TEAR DROP CELLS FEW
--- NOTE | 2021-11-06 14:00 | NUR ---
Patients discharge instructions reviewed with patient at bedside all questions answered. Patients discharge instructions were reviewed with patients son Homer when patient was taken to son's vehicle for discharge. Patient had no IV in place and patient states he has all his belongings. Patient was taken to son's vehicle via wheelchair. Patient wearing a surgical mask.
== END 2021-11-06 15:31 | disposition home health service (06) | DRG 177 ==
LOC: ER 16:28 → UNDOADMIN 22:25 → ORTHO 4S 22:25
PROVIDERS: ADMIT Family Medicine; ATTEND Family Medicine
DX: U07.1 COVID-19 (principal); J96.01 Acute respiratory failure with hypoxia; G93.41 Metabolic encephalopathy; N17.9 Acute kidney failure, unspecified; I13.0 Hypertensive heart and chronic kidney disease with heart failure and stage 1 through stage 4 chronic kidney disease, or unspecified chronic kidney disease; R62.7 Adult failure to thrive; E11.22 Type 2 diabetes mellitus with diabetic chronic kidney disease; N18.9 Chronic kidney disease, unspecified; J44.9 Chronic obstructive pulmonary disease, unspecified; E66.9 Obesity, unspecified; I50.9 Heart failure, unspecified; W18.39XA Other fall on same level, initial encounter; I25.10 Atherosclerotic heart disease of native coronary artery without angina pectoris; E11.65 Type 2 diabetes mellitus with hyperglycemia; E78.00 Pure hypercholesterolemia, unspecified; R29.6 Repeated falls; E78.5 Hyperlipidemia, unspecified; K21.9 Gastro-esophageal reflux disease without esophagitis; N40.0 Benign prostatic hyperplasia without lower urinary tract symptoms; Z87.891 Personal history of nicotine dependence; Z95.0 Presence of cardiac pacemaker; Z68.25 Body mass index [BMI] 25.0-25.9, adult; Z79.899 Other long term (current) drug therapy; Z99.81 Dependence on supplemental oxygen; Y93.89 Activity, other specified; Y92.098 Other place in other non-institutional residence as the place of occurrence of the external cause; Y99.8 Other external cause status
CPT/HCPCS: 36415; 70450; 71045; 80053; 80061; 81001; 82550; 82948; 83036; 83605; 83690; 83735; 84100; 84484; 85007; 85025; 85379; 85610; 85730; 87040; 87081; 87635; 97116; 97161; 97530; 99285; C9803; G0378; J1644; J1815; J7030

== ENCOUNTER 2021-11-15 08:26 | Inpatient (IN) | payer MEDICARE, BC ==
[~2021-11-15] VITALS: Ht 180.3 cm; Wt 122.7 kg
[~2021-11-15 08:26] MED LIST changes: +ACYC400T39 PO; +ALBU18HF2 PO; +ASPI81TA52 PO; +BUPR-317 PO; -BUPR150T8 PO; +CARV3.1244 PO; +DEC4T PO; +FLO0.4C PO; -IPRA3AMP31 NEB; -METF-517 PO; +METF-900 PO; +OMEP20CA16 PO; -OMEP40CA21 PO
[2021-11-15] MEDS ORDERED: acetaminophen 325mg tablet PO STA (09:03)
[2021-11-15] MEDS ORDERED: vancomycin/NS 1 GM ADD-VANTAGE 250 ML IV ONE (09:05)
[2021-11-15] MEDS ORDERED: ipratropium/albuterol 3ml nebule NEB ONE (09:05)
[2021-11-15] MEDS ORDERED: normal saline 1000ML IV soln IV ONE (09:05)
[2021-11-15] MEDS ORDERED: piperacillin/tazo 3.375gm/50ml 50 ML IV ONE (09:05)
[2021-11-15] MEDS ORDERED: methylPREDNISolone sod succ 125mg/2ml vial IV ONE (09:05)
[2021-11-15 09:12] LABS: BASOPHILS % (AUTO) 0.1 % (0-1); LYMPHOCYTES # (AUTO) 0.2 X10'3 (1.1-4.8); MEAN PLATELET VOLUME 8.2 FL (7.4-10.4); NEUTROPHILS # (AUTO) 2.7 X10'3 (1.8-7.7); WHITE BLOOD COUNT 2.9 X10'3 (4.5-11.0)
[2021-11-15 09:13] LABS: EOSINOPHILS % (AUTO) 1.1 % (0-6); HEMATOCRIT 31.7 % (42.0-52.0); HEMOGLOBIN 10.6 g/dl (14.0-17.9); LYMPHOCYTES % (AUTO) 5.9 % (21-51); MEAN CORPUSCULAR HEMOGLOBIN 34.8 PG (27.0-31.0); MEAN CORPUSCULAR HGB CONC 33.4 g/dL (33.0-36.5); MEAN CORPUSCULAR VOLUME 104.3 FL (78-98); MONOCYTES % (AUTO) 1.3 % (2-12); NEUTROPHILS % (AUTO) 91.6 % (42-75); PLATELET COUNT 108 X10'3 (140-440); RED BLOOD COUNT 3.04 X10'6 (4.70-6.10); RED CELL DISTRIBUTION WIDTH 19.2 % (11.5-14.5)
[2021-11-15 09:24] LABS: CLARITY,URINE SLIGHTLY CLOUDY (Clear); COLOR,URINE YELLOW (Yellow); GLUCOSE, URINE 100 mg/dl (Neg); KETONES,URINE 40 mg/dl (Neg); LEUKOCYTE ESTERASE ,URINE NEGATIVE (Neg); NITRITES, URINE NEGATIVE (Neg); OCCULT BLOOD,URINE SMALL (Neg); PROTEIN,URINE TRACE mg/dl (Neg); UROBILINOGEN,URINE 0.2 E.U/dL (0.2-1.0)
[2021-11-15 09:25] LABS: UA COLLECTION TYPE STRAIGHT CATH
[2021-11-15 09:32] LABS: ALANINE AMINOTRANSFERASE 21 U/L (12-78); ALBUMIN 2.2 G/DL (3.4-5.0); ALBUMIN/GLOBULIN RATIO 0.6 (1.1-1.5); ANION GAP 10 (8-16); ASPARTATE AMINO TRANSFERASE 31 U/L (10-37); BILIRUBIN,TOTAL 0.6 MG/DL (0.1-1.0); BLOOD UREA NITROGEN 22 MG/DL (7-18); BUN/CREATININE RATIO 22.7 (5.4-32.0); CALCIUM 7.7 MG/DL (8.5-10.1); CHLORIDE 98 MMOL/L (99-107); CREATININE 0.97 MG/DL (0.60-1.10); GLUCOSE 214 MG/DL (70-104); MAGNESIUM 1.9 MG/DL (1.5-2.4); POTASSIUM 4.6 MMOL/L (3.5-5.1); SODIUM 136 MMOL/L (135-145); TOTAL CARBON DIOXIDE 28.4 MMOL/L (24-32); TOTAL PROTEIN 5.7 G/DL (6.4-8.2); eGFR 75 ML/MIN
[2021-11-15 09:35] LABS: BACTERIA,URINE FEW /HPF (Neg); RBC,URINE 0-2 /HPF (0-2); SQUAMOUS EPITHELIAL CELL,UR FEW /LPF (FEW); WBC,URINE 0-4 /HPF (0-4)
[2021-11-15 09:36] LABS: AMORPHOUS URATES 1+; MUCUS STRANDS FEW /LPF (Neg); TRANSITIONAL EPI CELLS,URINE FEW /HPF
[2021-11-15 10:31] LABS: NUCLEATED RED BLOOD CELLS 2 /100WBC (0-0); TOTAL CELLS COUNTED 100
[2021-11-15 10:32] LABS: ANISOCYTOSIS 2+; PLATELET ESTIMATE DECREASED; POLYCHROMASIA FEW
[2021-11-15 10:34] LABS: ELLIPTOCYTES FEW
[2021-11-15 10:35] LABS: TOXIC VACUOLATION FEW
[2021-11-15] MEDS ORDERED: ondansetron/PF 4mg/2ml inj IV PRN (10:35)
[2021-11-15] MEDS ORDERED: magnesium 2GM in 50ml NS 50 ML IV PRN (10:35)
[2021-11-15] MEDS ORDERED: magnesium 4gm in 100ml NS 100 ML IV PRN (10:35)
[2021-11-15] MEDS ORDERED: potassium CL 10mEq/100ml bag 100 ML IV PRN (10:35)
[2021-11-15] MEDS ORDERED: magnesium Cl slow-release 64mg tablet PO PRN (10:35)
[2021-11-15] MEDS ORDERED: potassium Cl 20 mEq SR tablet PO PRN ×2 (10:35)
[2021-11-15] MEDS ORDERED: ASPI-611 PO (10:47)
[2021-11-15] MEDS: enoxaparin 40mg/0.4ml syringe SUBCUT SCH (11:16)
[2021-11-15] MEDS: normal saline 1000ml 1,000 ML IV SCH (11:16)
[2021-11-15 11:32] LABS: POTASSIUM 4.4 MMOL/L (3.5-5.1)
[2021-11-15] MEDS: ipratropium/albuterol 3ml nebule NEB SCH ×4 (11:34→23:35)
--- NOTE | 2021-11-15 12:22 | NUR ---
SPOKE WITH SON AMY CATALINO PT PCP KATARINA TRYING TO GET PATIENT INTO [facility]
[2021-11-15 12:43] LABS: ABG BASE EXCESS 1.6 mmol/L (-2.0-2.0); ABG HCO3 25.8 mmol/L (22.0-26.0); ABG OXYGEN SATURATION 90.7 % (94-97); ABG PCO2 (T) 38.1 mmHg (35.0-48.0); ABG PO2 (T) 60.7 mmHg (75.0-100.0); ALLEN'S TEST Modified; FCOHb 0.4 % (0.0-3.9); FLOW 6 L/min; FMetHb 0.3 % (0.0-1.5); FO2Hb 90.1 % (94-97); TOTAL HEMOGLOBIN 6.9 G/dl (14.0-18.0)
[2021-11-15] MEDS ORDERED: gabapentin 300mg capsule PO PRN (15:10)
[2021-11-15] MEDS ORDERED: albuterol 2.5 MG/3 ML nebule NEB PRN (15:50)
[2021-11-15 17:00] VITALS: BP 137/61
[2021-11-15] MEDS ORDERED: PERFLUTREN PROTEIN-A MICROSPHR (Optison) 0.22 MG/ML 3ML VIAL IV ONE (17:50)
--- NOTE | 2021-11-15 19:30 | NUR ---
Patient received from the ED at 1650 with no distress noted. He is alert and verbally responsive but forgetful. No labored breathing noted. On O2 via nasal cannula ad ordered. Denied pain upon arrival to the unit. 2 assessment analyst completed. Patient made comfortable in bed. Plan of care will continue.
--- NOTE | 2021-11-15 19:33 | NUR ---
Problems reprioritized. Patient report given, questions answered & plan of care reviewed with Ana Maria.
[2021-11-15] MEDS ORDERED: dexamethasone 4mg/ml inj IV SCH (20:00)
[2021-11-15] MEDS ORDERED: glucagon, human recombinant 1mg kit SUBCUT PRN (20:00)
[2021-11-15] MEDS ORDERED: dextrose 50%-water 50ml dispensing syringe IV PRN ×2 (20:00)
[2021-11-15] MEDS ORDERED: dextrose ORAL solution 15 GM/59 ML bottle PO PRN ×2 (20:00)
[2021-11-15] MEDS: K and/or MAG REPLACEMENT MC SCH (20:00)
[2021-11-15] MEDS: acyclovir 200 MG capsule PO SCH (20:07)
[2021-11-15] MEDS: tamsulosin 0.4mg capsule PO SCH (20:07)
[2021-11-15] MEDS: carVEDilol 3.125mg tablet PO SCH (20:07)
[2021-11-15] MEDS: dexamethasone inj 8 MG in dextrose 5%-water 100 ML IV SCH (20:09)
[2021-11-15] MEDS: losartan 50mg tablet PO SCH (20:17)
--- NOTE | 2021-11-15 20:40 | NUR ---
Dr Preciado notified of blood culture x2.
--- NOTE | 2021-11-15 20:45 | NUR ---
pharmacy notified of new insulin medication order
[2021-11-15] MEDS: insulin Lispro (HumaLOG) vial - multi-dose SQ SCH (21:46)
[2021-11-15] MEDS: insulin glargine (Lantus) pen - multi-dose SQ SCH (21:51)
[2021-11-15 22:00] VITALS: BP 118/49
--- NOTE | 2021-11-15 22:30 | NUR ---
Informed RN that patient had six beat run of V-tach per Telemetry.
--- NOTE | 2021-11-15 22:45 | NUR ---
Dr Preciado notified again about the positive blood culture in cocci and clusters
[2021-11-15] MEDS: VANCOMYCIN 1GM/200ML IVPB 200 ML IV SCH (23:53)
[2021-11-16] MEDS: morphine 2 MG/ML inj. syringe IV PRN ×2 (01:19→22:16)
[2021-11-16] MEDS: normal saline 1000ml 1,000 ML IV SCH ×3 (01:22→16:41)
[2021-11-16 02:00] VITALS: BP 91/41
[2021-11-16] MEDS: ipratropium/albuterol 3ml nebule NEB SCH ×6 (03:19→23:42)
[2021-11-16 06:00] VITALS: BP 96/47
[2021-11-16 06:46] LABS: RED BLOOD COUNT 2.49 X10'6 (4.70-6.10)
[2021-11-16 06:47] LABS: HEMOGLOBIN 8.8 g/dl (14.0-17.9); MEAN CORPUSCULAR HEMOGLOBIN 35.4 PG (27.0-31.0); MEAN CORPUSCULAR HGB CONC 33.9 g/dL (33.0-36.5); MEAN CORPUSCULAR VOLUME 104.3 FL (78-98); MEAN PLATELET VOLUME 8.1 FL (7.4-10.4); PLATELET COUNT 64 X10'3 (140-440); RED CELL DISTRIBUTION WIDTH 20.1 % (11.5-14.5)
[2021-11-16 07:25] LABS: ALBUMIN 1.8 G/DL (3.4-5.0); ANION GAP 9 (8-16); BLOOD UREA NITROGEN 45 MG/DL (7-18); CALCIUM 7.9 MG/DL (8.5-10.1); CHLORIDE 104 MMOL/L (99-107); CREATININE 1.61 MG/DL (0.60-1.10); GLUCOSE 388 MG/DL (70-104); MAGNESIUM 2.2 MG/DL (1.5-2.4); POTASSIUM 4.7 MMOL/L (3.5-5.1); SODIUM 137 MMOL/L (135-145); TOTAL CARBON DIOXIDE 24.3 MMOL/L (24-32); eGFR 42 ML/MIN
[2021-11-16] MEDS: losartan 50mg tablet PO SCH (08:00)
[2021-11-16] MEDS: carVEDilol 3.125mg tablet PO SCH ×2 (08:00→20:00)
[2021-11-16] MEDS: K and/or MAG REPLACEMENT MC SCH ×2 (08:00→20:00)
--- NOTE | 2021-11-16 08:59 | NUR ---
DM/Malnutrition Consults: Pt admit w/ COPD exacerbation and acute on chronic respiratory failure per EMR per EMR. Pt hx T2DM A1C 7.7% on metformin, actos, and Lantus at home per EMR. A1C is appropriate given geriatric age per ADA guidelines. Pt has no significant weakness noted, no edema/wounds, appears WD/WN per MD note. Current wt not scaled though previous wt on 11/04 was 84kg. 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 Likely decrease in PO trends given DX though pt had ~100% of first meal here. Currently lacks minimum malnutrition criteria. Will monitor for nutrition intervention needs this admit. Addendum: 11/16/21 at [address] Amended: Links added.
[2021-11-16] MEDS: dexamethasone inj 8 MG in dextrose 5%-water 100 ML IV SCH (09:01)
[2021-11-16] MEDS: enoxaparin 40mg/0.4ml syringe SUBCUT SCH (09:02)
[2021-11-16] MEDS: buPROPion SR 150mg tablet PO SCH (09:03)
[2021-11-16] MEDS: atorvastatin 10mg tablet PO SCH (09:05)
[2021-11-16] MEDS: aspirin 81mg, enteric-coated 1 TAB TABLET.DR PO SCH (09:06)
[2021-11-16] MEDS: cholecalciferol (vitamin D3) 1,000 unit (25mcg) tablet PO SCH (09:06)
[2021-11-16] MEDS: pantoprazole 40mg Tablet.DR PO SCH (09:16)
[2021-11-16 09:54] LABS: ANISOCYTOSIS 3+; NUCLEATED RED BLOOD CELLS 1 /100WBC (0-0); PLATELET ESTIMATE DECREASED; TOTAL CELLS COUNTED 100
[2021-11-16 09:55] LABS: TOXIC GRANULATION 1+; TOXIC VACUOLATION FEW
[2021-11-16 09:56] LABS: ELLIPTOCYTES FEW; POLYCHROMASIA FEW
[2021-11-16 10:00] VITALS: BP 106/53
[2021-11-16] MEDS: VANCOMYCIN 1GM/200ML IVPB 200 ML IV SCH (10:22)
[2021-11-16] MEDS: insulin Lispro (HumaLOG) vial - multi-dose SQ SCH ×3 (10:32→19:21)
[2021-11-16] MEDS: acyclovir 200 MG capsule PO SCH ×2 (11:49→20:00)
--- NOTE | 2021-11-16 12:28 | NUR ---
Dr. Campbell made aware via spoke messenger of patient's positive blood culture test result called.
[2021-11-16 15:00] VITALS: BP 119/59
[2021-11-16] MEDS: ceFAZolin/D5W- 1GM premix 50 ML IV SCH (16:40)
--- NOTE | 2021-11-16 18:30 | NUR ---
Patient in room MED 314. I have received report from KIM MILES and had the opportunity to ask questions and assume patient care. Addendum: 11/17/21 at 0301 by Elena Vences RN Amended: Links added.
[2021-11-16 18:55] VITALS: BP 119/59
--- NOTE | 2021-11-16 20:15 | NUR ---
Problems reprioritized. Patient report given, questions answered & plan of care reviewed with Juan Antonio.
[2021-11-16] MEDS: tamsulosin 0.4mg capsule PO SCH (21:00)
[2021-11-16 22:00] VITALS: BP 123/60
[2021-11-16] MEDS: insulin glargine (Lantus) pen - multi-dose SQ SCH (22:19)
[2021-11-17] MEDS: ceFAZolin/D5W- 1GM premix 50 ML IV SCH ×3 (00:39→17:01)
[2021-11-17 02:30] VITALS: BP 129/52
[2021-11-17] MEDS: ipratropium/albuterol 3ml nebule NEB SCH ×5 (03:10→22:50)
[2021-11-17 06:00] VITALS: BP 117/53
--- NOTE | 2021-11-17 06:27 | NUR ---
Problems reprioritized. Patient report given, questions answered & plan of care reviewed with KIM ADAIR. Addendum: 11/17/21 at 0628 by Elena Vences RN Amended: Links added.
--- NOTE | 2021-11-17 06:58 | NUR ---
Diabetes consult: Addressed in previous RD assessment Addendum: 11/17/21 at [address] Amended: Links added.
[2021-11-17] MEDS: normal saline 1000ml 1,000 ML IV SCH ×3 (07:00→17:00)
[2021-11-17] MEDS: pantoprazole 40mg Tablet.DR PO SCH (07:30)
[2021-11-17] MEDS: morphine 2 MG/ML inj. syringe IV PRN ×2 (07:41→22:36)
[2021-11-17] MEDS: buPROPion SR 150mg tablet PO SCH (08:00)
[2021-11-17] MEDS: cholecalciferol (vitamin D3) 1,000 unit (25mcg) tablet PO SCH (08:00)
[2021-11-17] MEDS: losartan 50mg tablet PO SCH (08:00)
[2021-11-17] MEDS: K and/or MAG REPLACEMENT MC SCH ×2 (08:00→20:00)
[2021-11-17] MEDS: atorvastatin 10mg tablet PO SCH (08:00)
[2021-11-17] MEDS: acyclovir 200 MG capsule PO SCH ×2 (08:00→20:00)
[2021-11-17] MEDS: carVEDilol 3.125mg tablet PO SCH (08:00)
[2021-11-17] MEDS: enoxaparin 40mg/0.4ml syringe SUBCUT SCH (08:00)
[2021-11-17] MEDS: aspirin 81mg, enteric-coated 1 TAB TABLET.DR PO SCH (08:00)
[2021-11-17] MEDS: insulin Lispro (HumaLOG) vial - multi-dose SQ SCH ×3 (09:50→18:47)
[2021-11-17 10:00] VITALS: BP 127/59
[2021-11-17] MEDS ORDERED: VANCOMYCIN 1GM/200ML IVPB 200 ML IV SCH (10:00)
--- NOTE | 2021-11-17 11:44 | NUR ---
Paged Dr Campbell PAGER ID: [phone] MESSAGE: [phone]. Parminder Fofana. Rec'd Adv directive - change code status? Rosette [phone]
[2021-11-17 14:00] VITALS: BP 132/61
--- NOTE | 2021-11-17 14:11 | NUR ---
1100 svn triaged-therapist not available
--- NOTE | 2021-11-17 16:27 | NUR ---
PAGER ID: [phone] MESSAGE: Re: Parminder Fofana. Room: 314. Received Pt's Advanced Care Directive. DNR stated in directive. Can we change code status? -Tristin ACCE #[id number] -Dr. Campbell paged concerning Pt's code status
[2021-11-17 16:57] LABS: HEMATOCRIT 30.4 % (42.0-52.0); MEAN CORPUSCULAR HEMOGLOBIN 34.4 PG (27.0-31.0); MEAN CORPUSCULAR HGB CONC 32.8 g/dL (33.0-36.5); MEAN CORPUSCULAR VOLUME 104.9 FL (78-98); MEAN PLATELET VOLUME 9.4 FL (7.4-10.4); PLATELET COUNT 68 X10'3 (140-440); RED CELL DISTRIBUTION WIDTH 19.8 % (11.5-14.5); WHITE BLOOD COUNT 3.8 X10'3 (4.5-11.0)
[2021-11-17 17:04] LABS: ALBUMIN 1.7 G/DL (3.4-5.0); ANION GAP 9 (8-16); BLOOD UREA NITROGEN 48 MG/DL (7-18); BUN/CREATININE RATIO 45.7 (5.4-32.0); CALCIUM 8.5 MG/DL (8.5-10.1); CHLORIDE 109 MMOL/L (99-107); CREATININE 1.05 MG/DL (0.60-1.10); GLUCOSE 250 MG/DL (70-104); POTASSIUM 5.1 MMOL/L (3.5-5.1); SODIUM 142 MMOL/L (135-145); TOTAL CARBON DIOXIDE 24.5 MMOL/L (24-32); eGFR 68 ML/MIN
[2021-11-17 17:35] LABS: NUCLEATED RED BLOOD CELLS 2 /100WBC (0-0); TOTAL CELLS COUNTED 100
[2021-11-17 17:36] LABS: ANISOCYTOSIS 2+; PLATELET ESTIMATE DECREASED
[2021-11-17 17:37] LABS: BURR CELLS 1+; ELLIPTOCYTES 1+; POLYCHROMASIA FEW; TOXIC GRANULATION 2+; TOXIC VACUOLATION FEW
[2021-11-17 18:00] VITALS: BP 124/58
[2021-11-17] MEDS: tamsulosin 0.4mg capsule PO SCH (21:00)
[2021-11-17 22:00] VITALS: BP 130/60
[2021-11-17] MEDS: insulin glargine (Lantus) pen - multi-dose SQ SCH (22:07)
[2021-11-18] MEDS: ceFAZolin/D5W- 1GM premix 50 ML IV SCH ×2 (00:54→08:36)
[2021-11-18 02:00] VITALS: BP 137/63
[2021-11-18] MEDS: normal saline 1000ml 1,000 ML IV SCH (03:00)
[2021-11-18] MEDS: ipratropium/albuterol 3ml nebule NEB SCH ×2 (03:00→07:00)
[2021-11-18] MEDS: morphine 2 MG/ML inj. syringe IV PRN ×3 (05:26→20:21)
[2021-11-18 06:00] VITALS: BP 158/67
[2021-11-18 07:23] LABS: BASOPHILS % (AUTO) 0.3 % (0-1); EOSINOPHILS % (AUTO) 0.2 % (0-6); HEMATOCRIT 31.9 % (42.0-52.0); HEMOGLOBIN 10.5 g/dl (14.0-17.9); LYMPHOCYTES # (AUTO) 0.3 X10'3 (1.1-4.8); LYMPHOCYTES % (AUTO) 10.4 % (21-51); MEAN CORPUSCULAR HEMOGLOBIN 34.3 PG (27.0-31.0); MEAN CORPUSCULAR HGB CONC 32.8 g/dL (33.0-36.5); MEAN CORPUSCULAR VOLUME 104.7 FL (78-98); MEAN PLATELET VOLUME 8.8 FL (7.4-10.4); MONOCYTES % (AUTO) 1.3 % (2-12); NEUTROPHILS # (AUTO) 2.1 X10'3 (1.8-7.7); NEUTROPHILS % (AUTO) 87.8 % (42-75); PLATELET COUNT 52 X10'3 (140-440); RED BLOOD COUNT 3.05 X10'6 (4.70-6.10); RED CELL DISTRIBUTION WIDTH 20.1 % (11.5-14.5); WHITE BLOOD COUNT 2.4 X10'3 (4.5-11.0)
[2021-11-18 07:29] LABS: ALBUMIN 1.7 G/DL (3.4-5.0); ANION GAP 6 (8-16); BLOOD UREA NITROGEN 44 MG/DL (7-18); BUN/CREATININE RATIO 47.8 (5.4-32.0); CALCIUM 8.3 MG/DL (8.5-10.1); CHLORIDE 109 MMOL/L (99-107); CREATININE 0.92 MG/DL (0.60-1.10); GLUCOSE 281 MG/DL (70-104); MAGNESIUM 2.1 MG/DL (1.5-2.4); POTASSIUM 4.8 MMOL/L (3.5-5.1); SODIUM 143 MMOL/L (135-145); TOTAL CARBON DIOXIDE 27.6 MMOL/L (24-32); eGFR 79 ML/MIN
[2021-11-18] MEDS: pantoprazole 40mg Tablet.DR PO SCH (07:30)
--- NOTE | 2021-11-18 07:30 | NUR ---
Per speech/swallow eval., pt is strict npo. pt is aspirating currently. Will hold all po medications and meal trays at this time. Will notify
[2021-11-18] MEDS: aspirin 81mg, enteric-coated 1 TAB TABLET.DR PO SCH (08:00)
[2021-11-18] MEDS: K and/or MAG REPLACEMENT MC SCH (08:00)
[2021-11-18] MEDS: losartan 50mg tablet PO SCH (08:00)
[2021-11-18] MEDS: cholecalciferol (vitamin D3) 1,000 unit (25mcg) tablet PO SCH (08:00)
[2021-11-18] MEDS: enoxaparin 40mg/0.4ml syringe SUBCUT SCH (08:00)
[2021-11-18] MEDS: atorvastatin 10mg tablet PO SCH (08:00)
[2021-11-18] MEDS: buPROPion SR 150mg tablet PO SCH (08:00)
[2021-11-18] MEDS: acyclovir 200 MG capsule PO SCH (08:00)
[2021-11-18 08:28] LABS: ANISOCYTOSIS 3+; PLATELET ESTIMATE DECREASED; TOTAL CELLS COUNTED 100
[2021-11-18 08:29] LABS: BURR CELLS 1+; HYPOCHROMASIA 1+; TOXIC GRANULATION 2+; TOXIC VACUOLATION 1+
[2021-11-18 08:30] LABS: ELLIPTOCYTES 1+; ROULEAUX 1+; TEAR DROP CELLS FEW
[2021-11-18] MEDS ORDERED: VANCOMYCIN LEVEL IV ONE (09:30)
--- NOTE | 2021-11-18 10:02 | NUR ---
413 Brigido: son Homer, , states he is ready to consider comfort care. Would like to discuss. Please call at your convenience. Thank you. Myah ALVAREZ
[2021-11-18 11:00] VITALS: BP 121/60
[2021-11-18] MEDS: insulin Lispro (HumaLOG) vial - multi-dose SQ SCH (12:12)
--- NOTE | 2021-11-18 12:16 | NUR ---
PAGER ID: [phone] MESSAGE: Re: Parminder ugarte. Room: [facility]. Son: Homer [phone] Judy ACCE #[id number] -Dr. Adrian rasmussen Pt's sons phone number
[2021-11-18] MEDS ORDERED: morphine 2 MG/ML inj. syringe IV PRN (12:30)
[2021-11-18] MEDS: LORazepam 2 mg/ml vial IV PRN ×2 (13:24→23:12)
--- NOTE | 2021-11-18 14:39 | NUR ---
msg sent to andressa Acevedo: now that patient is comfort can I please place a merida catheter. he is very combative everytime I have to change him due to incontinence. thank you. Myah ALVAREZ
[2021-11-18] MEDS ORDERED: cefazolin/dext.iso 2gm/100ml 100 ML IV SCH (16:00)
--- NOTE | 2021-11-18 16:44 | NUR ---
Daughter called and requested that we dial up the pts so they could speak. I called Yuliet Swanve at [facility] and held the phone up to the pts ear. The pt is confused and pushed my arm away very agitated and told me to stop. So I did. Let pts know that he is refusing to talk right now and that we could try again later.
--- NOTE | 2021-11-18 16:58 | NUR ---
Page sent to Dr. Campbell 314 andressa Fofana: Order for merida please? thank you. Myah ALVAREZ
[2021-11-18] MEDS ORDERED: LIDOcaine 2% 10ml TOPICAL JELLY (Urojet) TP ONE (17:00)
[2021-11-18 18:00] VITALS: BP 124/74
[2021-11-18] MEDS: tamsulosin 0.4mg capsule PO SCH (20:21)
[2021-11-18 22:00] VITALS: BP 128/72
[2021-11-19 02:00] VITALS: BP 129/76
--- NOTE | 2021-11-19 03:16 | NUR ---
PAGER ID: [phone] MESSAGE: SIMON HAYWARD ACTUALLY AT . I HAVE PT SOLE SIRENA IN ROOM 314. HE IS DNR. BUT IT SEEMS LIKE HE HAS FLUID ON HIS LUNG. HE KEPT COUGHING UNFORTUNATELLY NOTHING COMES OUT. I WAS WONDER IF YOU CAN ORDER LASIX FOR HIM. GUILLAUME ALVAREZ
[2021-11-19] MEDS: morphine 2 MG/ML inj. syringe IV PRN ×2 (03:33→14:15)
[2021-11-19 06:00] VITALS: BP 120/80
[2021-11-19] MEDS ORDERED: furosemide 40mg/4ml inj IV ONE (06:15)
[2021-11-19] MEDS: pantoprazole 40mg Tablet.DR PO SCH (07:45)
[2021-11-19] MEDS ORDERED: morphine 10mg/0.5ml (conc. morphine) oral syringe PO PRN (09:55)
[2021-11-19 10:00] VITALS: BP 116/74
[2021-11-19 19:00] VITALS: BP 121/54
[2021-11-19] MEDS: tamsulosin 0.4mg capsule PO SCH (21:00)
--- NOTE | 2021-11-20 01:32 | NUR ---
Patient doen't want to keep oxygen on
[2021-11-20 02:00] VITALS: BP 124/54
--- NOTE | 2021-11-20 06:30 | NUR ---
Patient in room MED 314. I have received report from Oralia ALVAREZ and had the opportunity to ask questions and assume patient care.
--- NOTE | 2021-11-20 06:37 | NUR ---
Problems reprioritized. Patient report given, questions answered & plan of care reviewed with Camila.
[2021-11-20] MEDS: pantoprazole 40mg Tablet.DR PO SCH (07:30)
[2021-11-20 08:00] VITALS: BP 116/54
[2021-11-20] MEDS: LORazepam 2 mg/ml vial IV PRN ×2 (10:43→15:36)
[2021-11-20] MEDS: morphine 2 MG/ML inj. syringe IV PRN ×2 (12:13→17:18)
--- NOTE | 2021-11-20 18:21 | NUR ---
Problems reprioritized. Patient report given, questions answered & plan of care reviewed with Yoly RN.
--- NOTE | 2021-11-20 20:00 | NUR ---
pt on comfort care not assessment or vitals done. pt comfortable at this time
[2021-11-20] MEDS: morphine 4 MG/ML inj SYRINge IV PRN (22:22)
[2021-11-21] MEDS: LORazepam 2 mg/ml vial IV PRN (00:05)
[2021-11-21] MEDS: morphine 4 MG/ML inj SYRINge IV PRN (00:21)
[2021-11-21] MEDS: morphine 2 MG/ML inj. syringe IV PRN ×2 (02:25→06:58)
[2021-11-21 06:00] VITALS: BP 113/47
--- NOTE | 2021-11-21 10:20 | NUR ---
PAGE SENT PAGER ID: [phone] MESSAGE: [phone], SIRENA WHIPPLE, PT HAS . THANK YOU, MALICK [phone]
--- NOTE | 2021-11-21 10:20 | NUR ---
Notified son Homer of Pt.'s . They did not wish to come in.
--- NOTE | 2021-11-21 10:30 | NUR ---
RN IS TO DOCUMENT YES TO ALL APPLICABLE AREAS Pronouncement of : 1010 1. Time Physician Notified:1020 2. Date of : 11/21/21 3. Time of : 101 4. DNR/Withdraw life support documented: Y 5. Monitor strip has been placed on chart: N (pt. not on tele monitor) 6. Assessment process is of one-minute duration and includes following criteria: a) Patient is unresponsive to all stimuli: Y b) Pupils fixed and non-reactive: Y c) Auscultation of precordium reveals absence of heart tones: Y d) Auscultation of lungs reveals absence of breath sounds: Y e) Absence of blood pressure / all vital signs: Y f) QRS complexes are not present on monitor / EKG strip: NOT ON TELE g) Pacer spikes without capture: 4. Comments:
--- NOTE | 2021-11-21 13:15 | NUR ---
Arrived to perform WOC assessment and pt had . No assessment performed.
== END 2021-11-21 12:20 | DRG 871 ==
LOC: ER 08:26 → ED HOLD 10:39 → EDBEDREQ 15:09 → EDBEDREQSVC 15:09 → MED 3N 16:14
PROVIDERS: ADMIT Internal Medicine; ATTEND Family Medicine
DX: A41.01 Sepsis due to Methicillin susceptible Staphylococcus aureus (principal); J96.21 Acute and chronic respiratory failure with hypoxia; J18.9 Pneumonia, unspecified organism; G93.41 Metabolic encephalopathy; J44.1 Chronic obstructive pulmonary disease with (acute) exacerbation; C92.00 Acute myeloblastic leukemia, not having achieved remission; D61.818 Other pancytopenia; J44.0 Chronic obstructive pulmonary disease with (acute) lower respiratory infection; L03.114 Cellulitis of left upper limb; L03.113 Cellulitis of right upper limb; Z66 Do not resuscitate; K21.9 Gastro-esophageal reflux disease without esophagitis; E66.01 Morbid (severe) obesity due to excess calories; E78.00 Pure hypercholesterolemia, unspecified; E78.5 Hyperlipidemia, unspecified; I11.0 Hypertensive heart disease with heart failure; F32.A Depression, unspecified; S51.002A Unspecified open wound of left elbow, initial encounter; S51.001A Unspecified open wound of right elbow, initial encounter; X58.XXXA Exposure to other specified factors, initial encounter; E11.42 Type 2 diabetes mellitus with diabetic polyneuropathy; I50.9 Heart failure, unspecified; N40.0 Benign prostatic hyperplasia without lower urinary tract symptoms; R29.6 Repeated falls; Z51.5 Encounter for palliative care; Z86.16 Personal history of COVID-19; Z79.4 Long term (current) use of insulin; Z95.0 Presence of cardiac pacemaker; Z95.828 Presence of other vascular implants and grafts; Z68.37 Body mass index [BMI] 37.0-37.9, adult; Y93.89 Activity, other specified; Y92.89 Other specified places as the place of occurrence of the external cause; Y99.8 Other external cause status
CPT/HCPCS: 36415; 36600; 71045; 80048; 80053; 81001; 82803; 82948; 83605; 83735; 83880; 84132; 84145; 84484; 85007; 85018; 85025; 87040; 87077; 87081; 87186; 92508; 92616; 93005; 93308; 94640; 94760; 96365; 96368; 96375; 97161; 97530; 99285; G0378; J0690; J1100; J1650; J1815; J1940; J2060; J2270; J2543; J2930; J3370; J7030; J7060